=== PATIENT | female | born 1955 | race Asian ===

== ENCOUNTER 2020-09-13 06:53 | Day surgery (SDC) | payer BC, SELFPAY ==
[~2020-09-13] VITALS: Ht 154.9 cm; Wt 54.4 kg
[2020-09-13] MEDS ORDERED: SIMETHICONE 40 MG/0.6 ML ML ONE (07:34)
[2020-09-13] MEDS: fentaNYL CITRATE/PF 100 MCG/2 ML AMP ONE ×2 (08:30→08:32)
[2020-09-13] MEDS: MIDAZOLAM HCL 5 MG/5 ML VIAL ONE ×3 (08:30→08:34)
[2020-09-13 11:48] VITALS: BP_SYST 100
== END 2020-09-13 09:40 | disposition home or self-care (01) ==
LOC: SDS 06:53 → SMU 06:53 → SDS 09:40
PROVIDERS: ATTEND Internal Medicine
DX: R19.4 Change in bowel habit (principal); Z20.828 Contact with and (suspected) exposure to other viral communicable diseases
CPT/HCPCS: 45380; 88305; 99152; G0378; J2250; J3010; J7030; U0003